=== PATIENT | male | born 1980 | race Caucasian/White ===

== ENCOUNTER 2021-08-19 09:19 | Emergency (ER) | payer OTHER ==
[2021-08-19 09:30] VITALS: BP 136/89; PULSE 60; TEMP 98.3; BMI 25.7
[2021-08-19] MEDS ORDERED: IBUPROFEN 600 MG TABLET (FP) PO ONE (09:51)
[2021-08-19] MEDS ORDERED: DIPHTH,PERTUSS(ACELL),TET 0.5 ML DISP.SYRIN IM ONE (09:51)
[2021-08-19] MEDS ORDERED: METHOCARBAMOL 500 MG TABLET PO ONE (09:51)
[2021-08-19] MEDS ORDERED: BACITRACIN 15 GM TUBE TOPICAL OINTMENT TP ONE (10:25)
== END 2021-08-19 11:30 | disposition home or self-care (01) ==
LOC: JERFT 09:19
PROC: 3E0234Z Introduction of Serum, Toxoid and Vaccine into Muscle, Percutaneous Approach (ICD-10-PCS; principal; 2021-08-19)
DX: S60.511A Abrasion of right hand, initial encounter (principal); S60.512A Abrasion of left hand, initial encounter; S50.311A Abrasion of right elbow, initial encounter; S80.211A Abrasion, right knee, initial encounter; V00.141A Fall from scooter (nonmotorized), initial encounter
CPT/HCPCS: 71046-TC-FY; 71101-TC-RT-FY; 73130-TC-LT-FY; 73130-TC-RT-FY; 90715; 99284-25